=== PATIENT | female | born 1975 | race Caucasian/White ===

== ENCOUNTER 2017-09-27 13:11 | Inpatient (IN) | payer BC, OTHER ==
[2017-09-27] MEDS ORDERED: NORMAL SALINE 1000 ML 1,000 ML IV ONE (13:19)
--- NOTE | 2017-09-27 13:25 | ER Document Report ---
ED Blood Sugar Problem - General Stated Complaint: BLOOD SUGAR CONCERNS Time Seen by Provider: 09/27/17 13:24 Mode of Arrival: Ambulatory Information source: Patient - HPI Onset: Other - 4 DAYS Onset/Duration: Gradual, Intermittent Quality of pain: No pain D-stick result: HIGH Insulin taken: No Glucose taken: No Associated symptoms: Increased thirst, Nausea, Vomiting Similar symptoms previously: Yes - NOT RECENT Recently seen / treated by doctor: No Notes: HAS BEEN TRYING TO MANAGE DIABETES BY SELF, NO MEDS FOR 4 YEARS. - Related Data Allergies/Adverse Reactions: No Known Allergies Allergy (Unverified 09/27/17 13:29) Past Medical History - General Information source: Patient - Social History Smoking Status: Former Smoker Cigarette use (# per day): No Chew tobacco use (# tins/day): No Frequency of alcohol use: Rare Drug Abuse: None Lives with: Spouse/Significant other Family History: DM Patient has suicidal ideation: No Patient has homicidal ideation: No - Past Medical History Cardiac Medical History: Reports: Hx Hypertension Pulmonary Medical History: Reports: None EENT Medical History: Reports: None Neurological Medical History: Reports: None Endocrine Medical History: Reports: Hx Diabetes Mellitus Type 2 Renal/ Medical History: Reports: None Malignancy Medical History: Reports: None GI Medical History: Reports: None Musculoskeltal Medical History: Reports None Psychiatric Medical History: Reports: None Past Surgical History: Reports: Hx Section Review of Systems - Review of Systems Constitutional: Weakness. denies: Chills, Fever EENT: No symptoms reported Cardiovascular: No symptoms reported Respiratory: No symptoms reported Gastrointestinal: See HPI Genitourinary: No symptoms reported Female Genitourinary: No symptoms reported Musculoskeletal: No symptoms reported Skin: No symptoms reported Neurological/Psychological: No symptoms reported Physical Exam - Vital signs Vitals: Resp 14 09/27/17 13:23 Interpretation: Tachycardic. No: Hypotensive, Tachypneic, Febrile - General General appearance: Appears well, Alert In distress: None - HEENT Head: Normocephalic Eyes: Normal Conjunctiva: Normal Ears: Normal Nasal: Normal Mouth/Lips: Normal, Other - POOR DENTAL REPAIR Mucous membranes: Dry - Respiratory Respiratory status: No respiratory distress Breath sounds: Normal - Cardiovascular Rhythm: Regular Heart sounds: Normal auscultation Murmur: No - Abdominal Inspection: Normal, Obese Bowel sounds: Hypoactive - Extremities General upper extremity: Normal inspection General lower extremity: Normal inspection - Neurological Neuro grossly intact: Yes Cognition: Normal Orientation: AAOx4 - Psychological Associated symptoms: Normal affect, Normal mood - Skin Skin Temperature: Warm Skin Moisture: Dry Skin Color: Normal Skin Turgor: Elastic Course - Vital Signs Vital signs: Temp Pulse Resp BP Pulse Ox 8 L 96/81 L 98 09/27/17 21:01 09/27/17 21:00 09/27/17 19:01 - Laboratory Result Diagrams: 09/27/17 13:25 09/27/17 19:25 Laboratory results interpreted by me: 09/27/17 09/27/17 09/27/17 13:25 13:25 14:51 Hgb 11.9 L Hct 35.8 L MCV 78 L MCH 25.9 L Seg Neutrophils % 82.4 H Lymphocytes % 11.7 L Sodium 136.8 L Potassium 5.2 H Chloride 95 L Anion Gap 20 H BUN 62 H Creatinine 2.01 H Est GFR ( Amer) 33 L Est GFR (Non-Af Amer) 27 L Glucose 620 H* POC Glucose AST 12 L Urine Protein 30 H Urine Glucose (UA) >=500 H Urine Ketones 20 H Urine Blood MODERATE H Ur Leukocyte Esterase TRACE H 09/27/17 09/27/17 09/27/17 17:07 18:03 19:25 Hgb Hct MCV MCH Seg Neutrophils % Lymphocytes % Sodium Potassium Chloride Anion Gap BUN 63 H Creatinine 1.69 H Est GFR ( Amer) 41 L Est GFR (Non-Af Amer) 34 L Glucose 282 H POC Glucose 384 H 344 H AST Urine Protein Urine Glucose (UA) Urine Ketones Urine Blood Ur Leukocyte Esterase 09/27/17 09/27/17 19:59 21:04 Hgb Hct MCV MCH Seg Neutrophils % Lymphocytes % Sodium Potassium Chloride Anion Gap BUN Creatinine Est GFR ( Amer) Est GFR (Non-Af Amer) Glucose POC Glucose 266 H 279 H AST Urine Protein Urine Glucose (UA) Urine Ketones Urine Blood Ur Leukocyte Esterase - EKG Interpretation by Me EKG shows normal: Sinus rhythm, [place], QRS Complexes. abnormal: Intervals - BORDERLINE LONG QT, ST-T Waves - BORDERLINE T ABNLS Rate: Tachycardia When compared to previous EKG there are: Previous EKG unavailable - Consults DR. 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
[2017-09-27 13:35] LABS: ABSOLUTE MONOCYTES (AUTO) 0.5 10^3/uL (0.1-1.4); BASOPHILS % (AUTO) 0.3 % (0-2); HEMATOCRIT 35.8 % (36.0-47.0); HEMOGLOBIN 11.9 g/dL (12.0-15.5); LYMPHOCYTES % (AUTO) 11.7 % (13-45); MEAN CORPUSCULAR HEMOGLOBIN 25.9 pg (27.0-33.4); MEAN CORPUSCULAR HGB CONC 33.1 g/dL (32.0-36.0); MEAN CORPUSCULAR VOLUME 78 fl (80-97); MONOCYTES % (AUTO) 5.6 % (3-13); PLATELET COUNT 346 10^3/uL (150-450); RED BLOOD COUNT 4.58 10^6/uL (3.72-5.28); RED CELL DISTRIBUTION WIDTH 13.9 % (11.5-14.0); SEGMENTED NEUTROPHILS % (AUTO) 82.4 % (42-78); TOTAL CELLS COUNTED % (AUTO) 100 %; WHITE BLOOD COUNT 8.5 10^3/uL (4.0-10.5)
[2017-09-27 13:54] LABS: ALANINE AMINOTRANSFERASE 24 U/L (9-52); ALBUMIN 4.2 g/dL (3.5-5.0); ALKALINE PHOSPHATASE 107 U/L (38-126); ASPARTATE AMINO TRANSFERASE 12 U/L (14-36); BILIRUBIN,DIRECT 0.4 mg/dL (0.0-0.4); BILIRUBIN,TOTAL 0.4 mg/dL (0.2-1.3); BLOOD UREA NITROGEN 62 mg/dL (7-20); CALCIUM 8.9 mg/dL (8.4-10.2); CARBON DIOXIDE 22 mmol/L (22-30); CHLORIDE 95 mmol/L (98-107); POTASSIUM 5.2 mmol/L (3.6-5.0); TOTAL PROTEIN 6.9 g/dL (6.3-8.2)
[2017-09-27 13:59] LABS: SODIUM 136.8 mmol/L (137-145)
[2017-09-27 14:02] LABS: ANION GAP 20 (5-19)
[2017-09-27 14:04] LABS: GLUCOSE 620 mg/dL (75-110)
[2017-09-27] MEDS ORDERED: NORMAL SALINE 1000 ML 1,000 ML IV PRN (14:14)
[2017-09-27] MEDS ORDERED: NORMAL SALINE 100 ML with INSULIN REGULAR, HUMAN 100 UNIT IV PRN ×2 (14:14)
[2017-09-27] MEDS ORDERED: INSULIN REG, HUMAN 100 UNIT/ML 3 ML VIAL (PYX) IV ONE (14:18)
[2017-09-27 15:25] LABS: APPEARANCE,URINE CLOUDY; BILIRUBIN,URINE NEGATIVE (NEGATIVE); COLOR,URINE YELLOW; GLUCOSE, URINE >=500 mg/dL (NEGATIVE); KETONES,URINE 20 mg/dL (NEGATIVE); LEUKOCYTE ESTERASE,URINE TRACE (NEGATIVE); NITRITE,URINE NEGATIVE (NEGATIVE); PROTEIN,URINE 30 mg/dL (NEGATIVE); URINE SPECIFIC GRAVITY 1.018; UROBILINOGEN,URINE NEGATIVE mg/dL (<2.0)
[2017-09-27] MEDS ORDERED: LORATADINE 10 MG TABLET PO ONE (18:32)
--- NOTE | 2017-09-27 19:18 | EKG REPORT ---
SEVERITY:- BORDERLINE ECG - SINUS TACHYCARDIA BORDERLINE T WAVE ABNORMALITIES BORDERLINE PROLONGED QT INTERVAL : Confirmed by: Govind Mcdonald 27-Sep-2017 19:17:44
[2017-09-27 19:58] LABS: ANION GAP 14 (5-19); BLOOD UREA NITROGEN 63 mg/dL (7-20); CARBON DIOXIDE 27 mmol/L (22-30); CHLORIDE 99 mmol/L (98-107); GLUCOSE 282 mg/dL (75-110); SODIUM 140.1 mmol/L (137-145)
[2017-09-27 20:07] LABS: POTASSIUM 4.1 mmol/L (3.6-5.0)
[2017-09-27] MEDS ORDERED: ONDANSETRON HCL INJ/PF 4 MG/2 ML SDV IV ONE (20:14)
[2017-09-27] MEDS ORDERED: RINGERS SOLUTION 1,000 ML IV PRN (21:48)
[2017-09-27] MEDS ORDERED: MAG HYDROX/AL HYDROX/SIMETH SUSP 30 ML UDCUP PO PRN (22:07)
[2017-09-27] MEDS ORDERED: IPRATROPIUM/ALBUTEROL 0.5-2.5 MG/3 ML AMPUL NEB PRN (22:07)
[2017-09-27] MEDS ORDERED: ACETAMINOPHEN 325 MG TABLET PO PRN (22:07)
[2017-09-27 22:40] LABS: PHOSPHORUS 4.3 mg/dL (2.5-4.5)
[2017-09-27 23:13] LABS: NT PRO BNP 143 pg/mL (<125)
[2017-09-27 23:14] LABS: CREATINE KINASE MB < 0.22 ng/mL (<4.55); TROPONIN I < 0.012 ng/mL
[2017-09-27] MEDS ORDERED: HUM INSULIN NPH/REG INSULIN HM 100 UNIT/1 ML 3 ML SUBCUT ONE (23:15)
[2017-09-28] MEDS ORDERED: CHLORPHENIRAMINE MALEATE 4 MG TABLET PO ONE (00:27)
[2017-09-28] MEDS ORDERED: FLUTICASONE NASAL SPRAY 50 MCG/SPRY 120 SPRAY/16 GM NASL ONE (01:15)
[2017-09-28] MEDS ORDERED: CHLORPHENIRAMINE MALEATE 4 MG TABLET ONE (01:27)
[2017-09-28] MEDS: NORMAL SALINE 1000 ML 1,000 ML IV PRN ×2 (02:06→04:18)
[2017-09-28 02:25] LABS: ANION GAP 11 (5-19); BLOOD UREA NITROGEN 60 mg/dL (7-20); CALCIUM 7.9 mg/dL (8.4-10.2); CARBON DIOXIDE 24 mmol/L (22-30); CHLORIDE 108 mmol/L (98-107); GLUCOSE 163 mg/dL (75-110); POTASSIUM 3.7 mmol/L (3.6-5.0); SODIUM 143.3 mmol/L (137-145)
--- NOTE | 2017-09-28 04:52 | PDOC H&P ---
History of Present Illness Admission Date/PCP: 09/27/17 22:10 Patient complains of: Abdominal pain and nausea History of Present Illness: KIERAN VALENCIA is a 42 year old female with past medical history hypertension and of diabetes who is been without medication for 4 years. Patient presents with 7 days of abdominal pain, nausea, polyuria polydipsia and anorexia. Symptoms prompted her to seek evaluation emergency room where she is found to have mild diabetic ketoacidosis, anion gap of 20 and hyperglycemia. She started on IV insulin, saline and referred the hospitalist for admission. Patient denies recent new medication but complains of seasonal allergies and maxillary sinusitis. Past Medical History Cardiac Medical History: Reports: Hypertension Pulmonary Medical History: Reports: None EENT Medical History: Reports: None Neurological Medical History: Reports: None Endocrine Medical History: Reports: Diabetes Mellitus Type 2 Renal/ Medical History: Reports: None Malignancy Medical History: Reports: None GI Medical History: Reports: None Musculoskeltal Medical History: Reports: None Psychiatric Medical History: Reports: None Traumatic Medical History: Reports: None Hematology: Reports: None Infectious Medical History: Reports: None Past Surgical History Past Surgical History: Reports: Section Social History Information Source: Patient Lives with: Spouse/Significant other Smoking Status: Former Smoker Frequency of Alcohol Use: None Drugs: None - Advance Directive Resuscitation Status: Full Code Family History Family History: DM Parental Family History Reviewed: Yes Children Family History Reviewed: Yes Sibling(s) Family History Reviewed.: Yes Medication/Allergy Allergies/Adverse Reactions: No Known Allergies Allergy (Unverified 09/27/17 13:29) Review of Systems Constitutional: PRESENT: as per HPI, anorexia, fatigue, weight loss. ABSENT: chills, fever(s), headache(s), weight gain Eyes: ABSENT: visual disturbances Ears: ABSENT: hearing changes Nose, Mouth, and Throat: PRESENT: as per HPI, other - Rhinorrhea and maxillary pressure Cardiovascular: ABSENT: chest pain, dyspnea on exertion, edema, orthropnea, palpitations Respiratory: ABSENT: cough, hemoptysis Gastrointestinal: PRESENT: as per HPI, nausea, vomiting. ABSENT: abdominal pain , constipation, diarrhea, hematemesis, hematochezia Genitourinary: PRESENT: as per HPI, other - Polyuria. ABSENT: dysuria, hematuria Musculoskeletal: ABSENT: joint swelling Integumentary: ABSENT: rash, wounds Neurological: ABSENT: abnormal gait, abnormal speech, confusion, dizziness, focal weakness, syncope Psychiatric: ABSENT: anxiety, depression, homidical ideation, suicidal ideation Endocrine: ABSENT: cold intolerance, heat intolerance, polydipsia, polyuria Hematologic/Lymphatic: ABSENT: easy bleeding, easy bruising Physical Exam Vital Signs: Temp Pulse Resp BP Pulse Ox 98.4 F 102 H 16 124/60 100 09/28/17 00:23 09/28/17 02:00 09/28/17 00:23 09/28/17 00:23 09/28/17 00:23 General appearance: PRESENT: no acute distress, cooperative, well-developed, well-nourished Head exam: PRESENT: atraumatic, normocephalic Eye exam: PRESENT: conjunctiva pink, EOMI, PERRLA. ABSENT: scleral icterus Ear exam: PRESENT: normal external ear exam Mouth exam: PRESENT: dry mucosa, tongue midline Neck exam: ABSENT: carotid bruit, JVD, lymphadenopathy, thyromegaly Respiratory exam: PRESENT: clear to auscultation hernesto. ABSENT: rales, rhonchi, wheezes Cardiovascular exam: PRESENT: RRR. ABSENT: diastolic murmur, rubs, systolic murmur Pulses: PRESENT: normal dorsalis pedis pul Vascular exam: PRESENT: normal capillary refill GI/Abdominal exam: PRESENT: normal bowel sounds, soft. ABSENT: distended, guarding, mass, organolmegaly, rebound, tenderness Rectal exam: PRESENT: deferred Extremities exam: PRESENT: full ROM. ABSENT: calf tenderness, clubbing, pedal edema Neurological exam: PRESENT: alert, awake, oriented to person, oriented to place , oriented to time, oriented to situation, CN II-XII grossly intact. ABSENT: motor sensory deficit Psychiatric exam: PRESENT: appropriate affect, normal mood. ABSENT: homicidal ideation, suicidal ideation Skin exam: PRESENT: dry, intact, warm. ABSENT: cyanosis, rash Results Laboratory Results: 09/28/17 01:56 09/28/17 01:56 Sodium 143.3 Potassium 3.7 Chloride 108 H Carbon Dioxide 24 Anion Gap 11 BUN 60 H Creatinine 1.37 H Est GFR ( Amer) 52 L Est GFR (Non-Af Amer) 43 L Glucose 163 H Calcium 7.9 L 09/27/17 22:30 CK-MB (CK-2) < 0.22 Troponin I < 0.012 NT-Pro-B Natriuret Pep 143 H Assessment & Plan - Diagnosis (1) Diabetic ketoacidosis Is this a current diagnosis for this admission?: Yes Plan: Diabetic ketoacidosis patient has had some degree of polyuria polydipsia with nausea and uncontrolled hyperglycemia with supporting labs. Patient will receive IV fluids IV insulin serial chemistries every 6 hours for evaluation for electrolyte repletion. Continued evaluation for underlying cause if not found Patient will require diabetic education and consideration of mental health evaluation. 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 Avoid nephrotoxic meds and doses hydrate and reevaluate chemistry. - Time Time Spent: 50 to 70 Minutes - Inpatient Certification Medical Necessity: Need Close Monitoring Due to Risk of Patient Decompensation
[2017-09-28 06:53] LABS: ANION GAP 9 (5-19); BLOOD UREA NITROGEN 51 mg/dL (7-20); CALCIUM 7.6 mg/dL (8.4-10.2); CARBON DIOXIDE 23 mmol/L (22-30); CHLORIDE 110 mmol/L (98-107); CHOLESTEROL 192.56 mg/dL (0-200); GLUCOSE 147 mg/dL (75-110); POTASSIUM 3.5 mmol/L (3.6-5.0); SODIUM 142.3 mmol/L (137-145); TRIGLYCERIDES 233 mg/dL (<150)
[2017-09-28] MEDS: HEPARIN SOD (PORCINE) 5,000 UNIT/ML 1 ML SYRINGE SUBCUT SCH ×3 (06:53→21:19)
[2017-09-28] MEDS: POTASSI CL 20 MEQ/50 ML RIDER 20 MEQ/50 ML RTUPB IV SCH ×2 (06:53→08:45)
[2017-09-28 07:03] LABS: DIRECT LDL 98 mg/dL (<100)
[2017-09-28 07:04] LABS: VLDL CHOLESTEROL 46.6 mg/dL (10-31)
--- NOTE | 2017-09-28 07:51 | Physician Advisory Note ---
Physician Advisor ProgressNote .: Pursuant to the plan for [facility], I have reviewed the medical record for this patient. Physician Advisor Statement: Nice documentation of ARF & DKA. Status: appropriate for Obs to start. Now, ARF may be resolved, & FSBSs better , but pt has shown repeated bradypnea as low as 8, & persistent tachycardia since arrival. Attending, if you consider pt not yet safe for d/c today, please document the clinical issues that are still concerning & need further eval/monitoring, & status may be re-assessed. Thanks! CK
[2017-09-28] MEDS ORDERED: NORMAL SALINE 1000 ML 1,000 ML IV PRN (08:49)
[2017-09-28] MEDS ORDERED: GLUCAGON,HUMAN RECOMB 1 MG INJ IM PRN (09:11)
[2017-09-28] MEDS ORDERED: DEXTROSE 40% GEL 15 GM TUBE PO PRN ×2 (09:11)
[2017-09-28] MEDS ORDERED: INSULIN LISPRO 100 UNIT/ML 3 ML VIAL SUBCUT PRN (09:11)
[2017-09-28] MEDS ORDERED: DEXTROSE 50%-WATER 25 GM/50 ML DISP.SYRIN IV PRN ×2 (09:11)
[2017-09-28] MEDS ORDERED: POTASSIUM CHLORIDE 10 MEQ TABLET.SA PO ONE (10:00)
[2017-09-28] MEDS ORDERED: HUM INSULIN NPH/REG INSULIN HM 100 UNIT/1 ML 3 ML SUBCUT SCH ×2 (10:00)
[2017-09-28] MEDS: INSULIN LISPRO 100 UNIT/ML 3 ML VIAL SUBCUT SCH ×2 (11:29→16:16)
[2017-09-28] MEDS: FENOFIBRATE NANOCRYSTALLIZED 145 MG TABLET PO SCH (11:38)
[2017-09-28] MEDS: INSULIN DETEMIR 100 UNIT/ML 3 ML PEN SUBCUT SCH ×2 (11:40→22:10)
[2017-09-28] MEDS: LISINOPRIL 5 MG TABLET PO SCH (11:41)
[2017-09-28] MEDS: VENLAFAXINE HCL 37.5 MG CAP.SR.24H PO SCH (11:41)
[2017-09-28] MEDS: FLUTICASONE NASAL SPRAY 50 MCG/SPRY 120 SPRAY/16 GM NASL SCH ×2 (13:20→21:18)
--- NOTE | 2017-09-28 15:03 | PDOC PROGRESS REPORT ---
Subjective Progress Note for:: 09/28/17 Subjective:: Patient refers that she feels better when compared to admission. Patient realizes that she had made a lot of mistakes as far as not taking care of seeking help for her diabetes. She states that she does have health insurance so therefore she does not have any excuses. Review of systems All organ systems evaluated and negative except as in subjective All significant laboratories and diagnostics have been reviewed Reason For Visit: ARF, DKA, HYPOTENSION Physical Exam Vital Signs: Temp Pulse Resp BP Pulse Ox 98.4 F 101 H 16 124/60 100 09/28/17 00:23 09/28/17 07:00 09/28/17 00:23 09/28/17 00:23 09/28/17 00:23 Intake & Output 09/27/17 09/28/17 09/29/17 06:59 06:59 06:59 Weight 87.1 kg General appearance: PRESENT: cooperative, obese Head exam: PRESENT: atraumatic, normocephalic Eye exam: PRESENT: conjunctiva pink, EOMI, PERRLA Ear exam: PRESENT: normal external ear exam Mouth exam: PRESENT: moist Neck exam: PRESENT: full ROM. ABSENT: JVD, lymphadenopathy, tenderness Respiratory exam: PRESENT: clear to auscultation hernesto Cardiovascular exam: PRESENT: tachycardia. ABSENT: diastolic murmur, systolic murmur Vascular exam: PRESENT: normal capillary refill GI/Abdominal exam: PRESENT: normal bowel sounds, soft. ABSENT: tenderness Extremities exam: PRESENT: full ROM. ABSENT: pedal edema, tenderness Musculoskeletal exam: PRESENT: ambulatory Neurological exam: PRESENT: alert, awake, oriented to person, oriented to place , oriented to time, oriented to situation, CN II-XII grossly intact Psychiatric exam: PRESENT: appropriate affect, normal mood Skin exam: PRESENT: jaundice, normal color Results Laboratory Results: 09/28/17 05:56 09/28/17 09/28/17 01:56 05:56 Sodium 143.3 142.3 Potassium 3.7 3.5 L Chloride 108 H 110 H Carbon Dioxide 24 23 Anion Gap 11 9 BUN 60 H 51 H Creatinine 1.37 H 1.11 Est GFR ( Amer) 52 L > 60 Est GFR (Non-Af Amer) 43 L 54 L Glucose 163 H 147 H Calcium 7.9 L 7.6 L Triglycerides 233 H Cholesterol 192.56 LDL Cholesterol Direct 98 VLDL Cholesterol 46.6 H HDL Cholesterol 27 L 09/27/17 22:30 CK-MB (CK-2) < 0.22 Troponin I < 0.012 NT-Pro-B Natriuret Pep 143 H Assessment & Plan - Diagnosis (1) Depression Qualifiers: Depression Type: unspecified Qualified Code(s): F32.9 - Major depressive disorder, single episode, unspecified Is this a current diagnosis for this admission?: Yes Plan: To place patient on Effexor X (2) Dehydration Is this a current diagnosis for this admission?: Yes Plan: Improving. 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 To start metformin while in-house (4) Renal failure, acute Qualifiers: Acute renal failure type: unspecified Qualified Code(s): N17.9 - Acute kidney failure, unspecified Is this a current diagnosis for this admission?: Yes Plan: Improving but to continue hydration she is still not at baseline (5) Hyperlipidemia associated with type 2 diabetes mellitus Is this a current diagnosis for this admission?: Yes Plan: To place patient on Lipitor and TriCor - Time Time Spent with patient: 15-24 minutes Medications reviewed and adjusted accordingly: Yes Anticipated discharge: Home Within: within 24 hours - Inpatient Certification Based on my medical assessment, after consideration of the patient's comorbidities, presenting symptoms, or acuity I expect that the services needed warrant INPATIENT care.: Yes I certify that my determination is in accordance with my understanding of Medicare's requirements for reasonable and necessary INPATIENT services [42 CFR 412.3e].: Yes Medical Necessity: Need Close Monitoring Due to Risk of Patient Decompensation, Need For IV Fluids
[2017-09-28] MEDS: METFORMIN HCL 500 MG TABLET PO SCH (16:25)
[2017-09-28] MEDS: ONDANSETRON HCL INJ/PF 4 MG/2 ML SDV IV PRN (16:30)
[2017-09-28] MEDS ORDERED: ONDANSETRON HCL INJ/PF 4 MG/2 ML SDV ONE (16:33)
[2017-09-28] MEDS ORDERED: METOCLOPRAMIDE HCL INJ/PF 10 MG/2 ML SDV IV ONE (21:15)
[2017-09-28] MEDS ORDERED: ATORVASTATIN CALCIUM 40 MG TABLET PO SCH (22:00)
[2017-09-29] MEDS: HEPARIN SOD (PORCINE) 5,000 UNIT/ML 1 ML SYRINGE SUBCUT SCH (04:54)
[2017-09-29] MEDS: ONDANSETRON HCL INJ/PF 4 MG/2 ML SDV IV PRN (06:10)
[2017-09-29 06:59] LABS: ABSOLUTE LYMPHOCYTES (AUTO) 1.9 10^3/uL (0.5-4.7); ABSOLUTE MONOCYTES (AUTO) 0.5 10^3/uL (0.1-1.4); ABSOLUTE NEUT (AUTO) 4.2 10^3/uL (1.7-8.2); BASOPHILS % (AUTO) 0.2 % (0-2); EOSINOPHILS % (AUTO) 0.5 % (0-6); HEMATOCRIT 31.8 % (36.0-47.0); HEMOGLOBIN 10.5 g/dL (12.0-15.5); LYMPHOCYTES % (AUTO) 28.9 % (13-45); MEAN CORPUSCULAR HEMOGLOBIN 25.4 pg (27.0-33.4); MEAN CORPUSCULAR VOLUME 77 fl (80-97); PLATELET COUNT 332 10^3/uL (150-450); RED BLOOD COUNT 4.15 10^6/uL (3.72-5.28); SEGMENTED NEUTROPHILS % (AUTO) 62.4 % (42-78); TOTAL CELLS COUNTED % (AUTO) 100 %; WHITE BLOOD COUNT 6.7 10^3/uL (4.0-10.5)
[2017-09-29 07:13] LABS: ANION GAP 10 (5-19); BLOOD UREA NITROGEN 18 mg/dL (7-20); CALCIUM 8.3 mg/dL (8.4-10.2); CARBON DIOXIDE 28 mmol/L (22-30); CHLORIDE 105 mmol/L (98-107); GLUCOSE 79 mg/dL (75-110); POTASSIUM 3.7 mmol/L (3.6-5.0); SODIUM 143.1 mmol/L (137-145)
[2017-09-29 08:14] VITALS: BP 164/93
[2017-09-29] MEDS: METFORMIN HCL 500 MG TABLET PO SCH (08:21)
[2017-09-29] MEDS ORDERED: METOCLOPRAMIDE HCL 10 MG TABLET PO ONE (09:00)
[2017-09-29] MEDS: VENLAFAXINE HCL 37.5 MG CAP.SR.24H PO SCH (09:31)
[2017-09-29] MEDS: FENOFIBRATE NANOCRYSTALLIZED 145 MG TABLET PO SCH (09:32)
[2017-09-29] MEDS: LISINOPRIL 5 MG TABLET PO SCH (09:32)
[2017-09-29] MEDS: FLUTICASONE NASAL SPRAY 50 MCG/SPRY 120 SPRAY/16 GM NASL SCH (09:32)
[2017-09-29] MEDS: INSULIN DETEMIR 100 UNIT/ML 3 ML PEN SUBCUT SCH (09:33)
[2017-09-29] MEDS: INSULIN LISPRO 100 UNIT/ML 3 ML VIAL SUBCUT SCH ×2 (09:41→12:10)
--- NOTE | 2017-09-30 06:50 | PDOC DISCHARGE SUMMARY ---
General - Admit/Disc Date/PCP Admission Date/Primary Care Provider: 09/27/17 22:10 Discharge Date: 09/29/17 - Discharge Diagnosis (1) Renal failure, acute Is this a current diagnosis for this admission?: Yes (2) Diabetes type 2, uncontrolled Is this a current diagnosis for this admission?: Yes (3) Dehydration Is this a current diagnosis for this admission?: Yes (4) Depression Is this a current diagnosis for this admission?: Yes (5) Hyperlipidemia associated with type 2 diabetes mellitus Is this a current diagnosis for this admission?: Yes (6) Diabetic ketoacidosis Is this a current diagnosis for this admission?: Yes - Additional Information Resuscitation Status: Full Code Discharge Diet: Diabetic Discharge Activity: Activity As Tolerated Prescriptions: Atorvastatin Calcium [Lipitor 40 mg Tablet] 40 mg PO QHS #30 tablet Fenofibrate Nanocrystallized [Tricor 145 mg Tablet] 145 mg PO DAILY #30 tablet Insulin Detemir [Levemir Insulin 100 units/mL] 25 unit SUBCUT Q12 #2 insuln.pen Lisinopril [Prinivil 5 mg Tablet] 5 mg PO DAILY #30 tablet Metformin HCl [Glucophage 500 mg Tablet] 1,000 mg PO BIDACBS #120 tablet Ondansetron HCl [Zofran 4 mg Tablet] 1 - 2 tab PO Q4H PRN #10 tablet PRN Reason: Venlafaxine HCl ER [Effexor Xr 37.5 mg Cap.sr] 37.5 mg PO DAILY #30 cap.sr.24h Home Medications: Atorvastatin Calcium [Lipitor 40 mg Tablet] 40 mg PO QHS #30 tablet 09/29/17 Fenofibrate Nanocrystallized [Tricor 145 mg Tablet] 145 mg PO DAILY #30 tablet 09/29/17 Insulin Detemir [Levemir Insulin 100 units/mL] 25 unit SUBCUT Q12 #2 insuln.pen 09/29/17 Lisinopril [Prinivil 5 mg Tablet] 5 mg PO DAILY #30 tablet 09/29/17 Metformin HCl [Glucophage 500 mg Tablet] 1,000 mg PO BIDACBS #120 tablet Ondansetron HCl [Zofran 4 mg Tablet] 1 - 2 tab PO Q4H PRN #10 tablet 09/29/17 Venlafaxine HCl ER [Effexor Xr 37.5 mg Cap.sr] 37.5 mg PO DAILY #30 cap.sr.24h 09/29/17 History of Present Illness History of Present Illness: KIERAN VALENCIA is a 42 year old female with past medical history hypertension and of diabetes who is been without medication for 4 years. Patient presented with 7 days of abdominal pain, nausea, polyuria, polydipsia and anorexia. Symptoms prompted her to seek evaluation emergency room where she was found to have mild diabetic ketoacidosis, anion gap of 20 and hyperglycemia. She started on IV insulin, saline and referred the hospitalist for admission. Patient denied recent new medication but complains of seasonal allergies and maxillary sinusitis. Hospital Course Hospital Course: Patient was placed with IV fluids with further improvement of renal function to baseline. Anion gap close. Blood sugar was managed with long-acting and short- acting insulin. We also added metformin to evaluate for tolerance of medication. Lipid profile demonstrated hyperlipidemia which is not unusual since diabetes is out of control. Patient was placed on Lipitor and TriCor. Patient has been advised that she needs close follow with primary care provider as hyperlipidemia may improve with better control of diabetes. Patient was started on antihypertensive regimen however again she will need close follow-up as may need further adjustment. Patient expressed being depressed and she was started on Effexor. She continued having some nausea, an antiemetic was prescribed. Probably patient may have an element of gastroparesis which may improve with better diabetic control. Patient appears to be motivated to follow through with her health issues. She does have health insurance which is encouraging. Since patient had achieved maximum benefit of hospitalization stay prompted to discharge under stable condition Physical Exam Vital Signs: Temp Pulse Resp BP Pulse Ox 99.2 F 91 14 148/76 H 100 09/28/17 21:54 09/29/17 02:00 09/28/17 21:54 09/28/17 21:54 09/28/17 21:54 Intake & Output 09/28/17 09/29/17 09/30/17 06:59 06:59 06:59 Intake Total 2922 Balance 2922 Weight 87.1 kg 88.4 kg General appearance: PRESENT: cooperative, obese Head exam: PRESENT: atraumatic, normocephalic Eye exam: PRESENT: conjunctiva pink, EOMI, PERRLA Ear exam: PRESENT: normal external ear exam Neck exam: PRESENT: full ROM. ABSENT: JVD, lymphadenopathy, tenderness Respiratory exam: PRESENT: clear to auscultation hernesto Cardiovascular exam: PRESENT: RRR. ABSENT: diastolic murmur, systolic murmur GI/Abdominal exam: PRESENT: normal bowel sounds, soft. ABSENT: tenderness Extremities exam: PRESENT: full ROM. ABSENT: pedal edema Musculoskeletal exam: PRESENT: ambulatory Neurological exam: PRESENT: alert, awake, oriented to person, oriented to place , oriented to time, oriented to situation, CN II-XII grossly intact Psychiatric exam: PRESENT: appropriate affect, normal mood Skin exam: PRESENT: intact, normal color Results Laboratory Results: 09/29/17 06:29 09/29/17 06:29 09/29/17 09/29/17 06:29 06:29 WBC 6.7 RBC 4.15 Hgb 10.5 L Hct 31.8 L MCV 77 L MCH 25.4 L MCHC 33.0 RDW 14.0 Plt Count 332 Seg Neutrophils % 62.4 Lymphocytes % 28.9 Monocytes % 8.0 Eosinophils % 0.5 Basophils % 0.2 Absolute Neutrophils 4.2 Absolute Lymphocytes 1.9 Absolute Monocytes 0.5 Absolute Eosinophils 0.0 Absolute Basophils 0.0 Sodium 143.1 Potassium 3.7 Chloride 105 Carbon Dioxide 28 Anion Gap 10 BUN 18 Creatinine 0.62 Est GFR ( Amer) > 60 Est GFR (Non-Af Amer) > 60 Glucose 79 Calcium 8.3 L Magnesium 2.0 09/27/17 22:30 CK-MB (CK-2) < 0.22 Troponin I < 0.012 NT-Pro-B Natriuret Pep 143 H Qualifiers - * PATEINT BEING DISCHARGED WITH ANY OF THE FOLLOWING DIAGNOSIS?: No Plan Discharge Plan: Discharge home Time Spent: Less than 30 Minutes
== END 2017-09-29 12:25 | disposition home or self-care (01) | DRG 682 ==
LOC: ER 13:11 → EH 22:10 → OBSVTOIN 22:10 → 5 09-28
PROVIDERS: ADMIT Internal Medicine; ATTEND Internal Medicine
DX: N17.9 Acute kidney failure, unspecified (principal); E11.10 Type 2 diabetes mellitus with ketoacidosis without coma; E86.0 Dehydration; I10 Essential (primary) hypertension; E78.5 Hyperlipidemia, unspecified; F32.9 Major depressive disorder, single episode, unspecified; Z79.84 Long term (current) use of oral hypoglycemic drugs; Z79.4 Long term (current) use of insulin; Z79.899 Other long term (current) drug therapy
CPT/HCPCS: 36415; 80048; 80053; 80061; 81001; 82550; 82553; 82962; 83036; 83690; 83735; 83880; 84100; 84443; 84484; 85025; 93005; 93010; 96361; 96374; 99285; G0378; J1644; J1815; J2405; J2765; J3480; J3490; J7030